=== PATIENT | female | born 1965 | race Caucasian/White ===

== ENCOUNTER 2024-08-10 10:37 | Emergency (ER) | payer MEDICAID ==
[~2024-08-10] VITALS: Ht 142.2 cm; Wt 54.9 kg
--- NOTE | 2024-08-10 10:47 | Physician Documentation ---
History of Present Illness ~ Stated Complaint: DETOX Time Seen by MD: 11:28 HPI 59-year-old female presents to the ED requesting medical clearance to go to [facility] however patient is currently vomiting. She states that no other rehab center would take her without being medically cleared. She states that on a good day feel drank a pt of hard alcohol hung and on a bad day she can drank a full handle. Patient last drink was at midnight. Vomiting during triage.. Alert mental for to the situation Day of Onset: Aug 10, 2024 Medication Reconciliation Allergies: Coded Allergies: aspirin (Verified Allergy, Unknown, 08/10/24) Scheduled PRN ONDANSETRON ODT 4mg tablet (Ondansetron Odt), 1 TAB PO Q6H PRN PRN for nausea/vomiting Review of Systems All Other Systems at this time: Reviewed and Negative ROS As stated above in the HPI, otherwise all systems are reviewed and negative. Physical Exam Physical Exam General: Alert,vomiting HEENT: PERRL, EOMI, no injection, moist mucous membranes. Respiratory: Lungs clear, no respiratory distress. Cardiovascular: tachycardic and rhythm, no murmurs. Gastrointestinal: Soft,Bowels sounds present. Extremities: Normal range of motion, no deformity. Neurologic: Oriented x4. Psychiatric: Normal mood and affect. Skin: Normal color, warm and dry. No edema, no ecchymosis. 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 (Zofran 4mg/2ml Vial) (08/10/24 10:50) Normal Saline 1000ml (Sodium Chloride 10 (08/10/24 10:50) Thiamine Inj. (Thiamine Inj.) (08/10/24 13:15) Folic Acid Inj. (Folic Acid Inj.) (08/10/24 13:15) Lorazepam Inj (Ativan Inj) (08/10/24 13:15) Ua W/Microscopic, Cult If Ind (08/10/24 13:38) Medications Received in ER Medications (Trade) Dose Ordered Sig/Rima Route PRN Reason Start Time Stop Time Status Last Admin Dose Admin (Ativan inj) 2 mg ONCE ONCE IV 08/10/24 10:50 08/10/24 10:51 DC 08/10/24 11:45 2 MG (Zofran 4mg/2ml vial) 8 mg ONCE ONCE IV 08/10/24 10:50 08/10/24 10:51 DC 08/10/24 11:45 8 MG (sodium chloride 1000ml IV soln) 2,000 ml ONCE ONCE IVB 08/10/24 10:50 08/10/24 10:51 DC 08/10/24 11:45 2,000 ML (thiamine inj.) 100 mg ONCE ONCE IV 08/10/24 13:15 08/10/24 13:17 DC 08/10/24 13:46 100 MG (folic acid inj.) 1 mg ONCE ONCE IV 08/10/24 13:15 08/10/24 13:19 DC 08/10/24 13:46 1 MG (Ativan inj) 2 mg ONCE ONCE IV 08/10/24 13:15 08/10/24 13:17 DC 08/10/24 13:46 2 MG Vital Signs 08/10/24 08/10/24 08/10/24 08/10/24 10:42 11:15 13:01 14:32 Temp 97.1 97.1 98.4 Pulse 134 114 106 Resp 18 20 22 18 B/P (MAP) 148/79 134/78 (96) 136/91 Pulse Ox 97 97 99 O2 Flow Rate 0 Laboratory Tests Test 08/10/24 11:01 08/10/24 13:38 White Blood Count 4.1 L Red Blood Count 4.61 Hemoglobin 11.6 L Hematocrit 37.0 Mean Corpuscular Volume 80.3 Mean Corpuscular Hemoglobin 25.1 L Mean Corpuscular Hemoglobin Concent 31.2 L Red Cell Distribution Width 18.6 H Platelet Count 287 Mean Platelet Volume 8.2 Neutrophils (%) (Auto) 64.7 Lymphocytes (%) (Auto) 23.7 Monocytes (%) (Auto) 7.9 Eosinophils (%) (Auto) 2.3 Basophils (%) (Auto) 1.4 H Neutrophils # (Auto) 2.7 Lymphocytes # (Auto) 1.0 L Monocytes # (Auto) 0.3 Eosinophils # (Auto) 0.1 Basophils # (Auto) 0.1 CBC Comment Platelet Estimate Normal Large Platelets Few Red Blood Cell Morphology Perf Basophilic Stippling Anisocytosis 2+ Sodium Level 145 Potassium Level 4.0 Chloride Level 109 H Carbon Dioxide Level 23.3 L Anion Gap 13 Blood Urea Nitrogen 10 Creatinine 0.70 Estimated GFR/1.73 m2 86 BUN/Creatinine Ratio 14.3 Glucose Level 119 H Calcium Level 8.9 Total Bilirubin 0.3 Aspartate Amino Transf (AST/SGOT) 57 H Alanine Aminotransferase (ALT/SGPT) 41 Alkaline Phosphatase 132 H Total Protein 7.2 Albumin 3.6 Globulin 3.6 Albumin/Globulin Ratio 1.0 L Lipase 95 H Chemistry Comments Ethyl Alcohol Level 144 H Urine Specimen Description Cln catch midstream Urine Color Yellow Urine Clarity Slightly cloudy Urine pH 5.5 Urine Specific [place] 1.025 Urine Protein Negative Urine Glucose (UA) Negative Urine Ketones Negative Urine Occult Blood Trace-intact Urine Nitrite Negative Urine Bilirubin Negative Urine Urobilinogen 0.2 Urine Leukocyte Esterase Negative Urine RBC 0-2 Urine WBC 0-4 Urine Squamous Epithelial Cells Few Urine Transitional Epithelial Cells Few Urine Bacteria Few Urine Culture Indicated Not ind Volume Urine Centrifuged 6 ml Urine Comment Low volume Medical Decision Making Findings This patient for acute alcohol withdrawal syndrome gave her folic acid, thiamine, multiple doses of Ativan along with the fluid bolus. Did somewhat improve symptomatically. The ER system with getting her placement [facility]. At this time I feel comfortable discharging her via medical clearance for alcohol recovery Differential Dx:Considerations: Include: Alcohol withdrawl synd., Delerium tremens, Hallucinosis, Seizures, Anticholinergic poisoning, CVA, Dehydration, Depression, Drug induced psychosis, Electolyte imbalance, Encephalitis, Encephalopathy, Hepatitis, Hyperthermia, Intoxication-alcohol, Intoxication- other drug, Medical noncompliance, Personality disorder, Schizophrenia, Seizure disorder, Substance abuse disorder, Seizure disorder, Thiamine deficiency, Thyrotoxicosis, Other Departure Disposition: 01 HOME / SELF CARE / HOMELESS Impression: Primary Impression: Alcoholic intoxication Additional Impression: Alcohol withdrawal syndrome Condition: Improved Discharge Instructions: Alcohol Intoxication Additional Instructions: To follow up with the [facility] in order to get the care that you need. At this time your medically cleared for alcohol recovery program. Continue to take your previously prescribed Librium as directed. Referrals: NO PRIMARY CARE PROVIDER (PCP) Prescriptions ONDANSETRON ODT 4mg tablet (ONDANSETRON ODT) 4 Mg Tab.rapdis 1 TAB PO Q6H PRN PRN for nausea/vomiting for 4 Days, #16 TAB 0 Refills Prov: PHOENIX PIKE NP 08/10/24 Signature Scribe Signature: j Attestation: Scribed for Phoenix Pike Bitumen Plant Operator by Phoenix Stephens NP . 08/10/24 18:16 PHOENIX PIKE NP Aug 10, 2024 10:47
--- NOTE | 2024-08-10 11:08 | ELECTROCARDIOGRAPH REPORT ---
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
[2024-08-10 11:15] LABS: BASOPHILS # (AUTO) 0.1 X10'3 (0-0.2); BASOPHILS % (AUTO) 1.4 % (0-1); EOSINOPHILS # (AUTO) 0.1 X10'3 (0-0.9); EOSINOPHILS % (AUTO) 2.3 % (0-6); HEMOGLOBIN 11.6 g/dl (12.0-16.0); LYMPHOCYTES % (AUTO) 23.7 % (21-51); MEAN CORPUSCULAR HEMOGLOBIN 25.1 PG (27.0-31.0); MEAN CORPUSCULAR HGB CONC 31.2 g/dL (33.0-36.5); MEAN CORPUSCULAR VOLUME 80.3 FL (78-98); MEAN PLATELET VOLUME 8.2 FL (7.4-10.4); MONOCYTES # (AUTO) 0.3 X10'3 (0-0.9); MONOCYTES % (AUTO) 7.9 % (2-12); NEUTROPHILS # (AUTO) 2.7 X10'3 (1.8-7.7); NEUTROPHILS % (AUTO) 64.7 % (42-75); PLATELET COUNT 287 X10'3 (140-440); RED BLOOD COUNT 4.61 X10'6 (4.20-5.60); RED CELL DISTRIBUTION WIDTH 18.6 % (11.5-14.5); WHITE BLOOD COUNT 4.1 X10'3 (4.5-11.0)
[2024-08-10 11:35] LABS: ANISOCYTOSIS 2+; LARGE PLATELETS FEW; PLATELET ESTIMATE NORMAL
[2024-08-10] MEDS: LORazepam 2 mg/ml vial IV ONE ×2 (11:45→13:46)
[2024-08-10] MEDS: normal saline 1000ML IV soln IVB ONE (11:45)
[2024-08-10] MEDS: ondansetron/PF 4mg/2ml inj IV ONE (11:45)
[2024-08-10 11:46] LABS: ALANINE AMINOTRANSFERASE 41 U/L (12-78); ALBUMIN 3.6 G/DL (3.4-5.0); ALKALINE PHOSPHATASE 132 IU/L (46-116); ANION GAP 13 (8-16); ASPARTATE AMINO TRANSFERASE 57 U/L (10-37); BILIRUBIN,TOTAL 0.3 MG/DL (0.1-1.0); BLOOD UREA NITROGEN 10 MG/DL (7-18); BUN/CREATININE RATIO 14.3 (10.0-20.0); CALCIUM 8.9 MG/DL (8.5-10.1); CHLORIDE 109 MMOL/L (99-107); GLUCOSE 119 MG/DL (70-104); SODIUM 145 MMOL/L (135-145); TOTAL CARBON DIOXIDE 23.3 MMOL/L (24-32); TOTAL PROTEIN 7.2 G/DL (6.4-8.2); eCRCL 51 ML/MIN; eGFR 86 ML/MIN
[2024-08-10 11:52] LABS: ETHANOL 144 MG/DL (<10); LIPASE 95 U/L (16-77)
[2024-08-10] MEDS ORDERED: ONDA-243 PO (13:34)
[2024-08-10] MEDS: folic acid 1mg/0.2ml inj IV ONE (13:46)
[2024-08-10] MEDS: thiamine 100mg/ml 2ml inj. IV ONE (13:46)
[2024-08-10 13:51] LABS: BILIRUBIN,URINE NEGATIVE (Neg); CLARITY,URINE SLIGHTLY CLOUDY (Clear); COLOR,URINE YELLOW (Yellow); GLUCOSE, URINE NEGATIVE (Neg); KETONES,URINE NEGATIVE (Neg); LEUKOCYTE ESTERASE ,URINE NEGATIVE (Neg); NITRITES, URINE NEGATIVE (Neg); OCCULT BLOOD,URINE TRACE-INTACT (Neg); PH,URINE 5.5 (4.8-8.0); PROTEIN,URINE NEGATIVE (Neg); UROBILINOGEN,URINE 0.2 E.U/dL (0.2-1.0)
[2024-08-10 14:13] LABS: UA COLLECTION TYPE CLN CATCH MIDSTREAM
[2024-08-10 14:32] VITALS: BP 136/91; PULSE 106; RESP 18; TEMP 98.4; O2SAT 99
[2024-08-10 14:33] LABS: BACTERIA,URINE FEW /HPF (Neg); RBC,URINE 0-2 /HPF (0-2); SQUAMOUS EPITHELIAL CELL,UR FEW /LPF (FEW); TRANSITIONAL EPI CELLS,URINE FEW /HPF; WBC,URINE 0-4 /HPF (0-4)
== END 2024-08-10 14:34 | disposition home or self-care (01) ==
LOC: ER 10:38
DX: F10.239 Alcohol dependence with withdrawal, unspecified (principal); Y90.9 Presence of alcohol in blood, level not specified; Z88.6 Allergy status to analgesic agent; Z79.899 Other long term (current) drug therapy
CPT/HCPCS: 36415; 80053; 80320; 81001; 83690; 85025; 93005; 96361; 96374; 96375; 96376; 99284; J2060; J2405; J3411; J3490; J7030; 85008